=== PATIENT | male | born 1965 | race African-American/Black ===

== ENCOUNTER 2018-09-01 14:23 | Inpatient (IN) ==
[2018-09-01] MEDS ORDERED: hydrALAZINE HCl Inj 20 MG/ML Vial IV.PUSH ONE (14:45)
--- NOTE | 2018-09-01 15:01 | ED ---
HPI General Chief complaint: Hypertension Stated complaint: Hypertension Time Seen by Provider: 09/01/18 14:44 Source: patient and EMS Mode of arrival: EMS Limitations: no limitations History of Present Illness HPI narrative: Patient is a 52-year-old male presenting to the emergency department for evaluation of hypertension. Patient went to the [facility] this morning to get refills of his risperidone and venlafaxine, they took his blood pressure, it was elevated and they called 911 for him to be evaluated in the emergency department. Patient has no physical complaints at this time. He denies any chest pain, shortness of breath, dizziness, headache. He states he has been on different regimens in the past try to get his blood pressure controlled, he reports it was well controlled on Bystolic but that was changed due to cost. Patient reports compliance with his medications. Past medical history significant for type 2 diabetes, hyperlipidemia, hypertension, sleep apnea, seizures, posttraumatic stress, traumatic brain injury. Patient states his blood pressure has not been well controlled for the last few weeks. His states that he has been under a lot of stress. Patient denies any tobacco , alcohol or illicit drug use. Related Data Home Medications Medication Instructions Recorded Confirmed aspirin 81 mg PO DAILY 09/01/18 09/01/18 carvedilol [Coreg] 25 mg PO BID 09/01/18 09/01/18 glipizide 10 mg PO BID 09/01/18 09/01/18 hydrochlorothiazide 25 mg PO DAILY 09/01/18 09/01/18 losartan 100 mg PO DAILY 09/01/18 09/01/18 metformin 1,000 mg PO BID 09/01/18 09/01/18 omeprazole magnesium [Prilosec OTC] 20 mg PO DAILY 09/01/18 09/01/18 pravastatin 40 mg PO DAILY 09/01/18 09/01/18 prazosin 2 mg PO TID 09/01/18 09/01/18 risperidone [Risperdal] 1 mg PO DAILY 09/01/18 09/01/18 venlafaxine 150 mg PO DAILY 09/01/18 09/01/18 Allergies Allergy/AdvReac Type Severity Reaction Status Date / Time No Known Allergies Allergy Uncoded 06/12/13 11:59 Review of Systems ROS: all other systems reviewed are negative [facility] Medical History Medical History Diabetes (Acute) High cholesterol (Acute) Hypertension (Acute) Migraine (Acute) PTSD (post-traumatic stress disorder) (Acute) Seizure (Acute) Sleep apnea (Acute) TBI (traumatic brain injury) (Acute) Social History Social History Substance History: No History of Abuse Second Hand Smoke Exposure: No Smoking Status: Never smoker How Often Do You Have a Drink Containing Alcohol: 2 to 4 times a month Recent Travel in [facility] within the Last 8 Weeks: No Recent Out of Country Travel within the Last 8 Weeks: No Immunization History Tetanus Immunization: Unsure Exam Narrative Exam Narrative: GENERAL: Overweight, well-developed, alert -[place]ian male. Presenting in no acute distress. SKIN: Focused skin assessment warm/dry. HEAD: Atraumatic. Normocephalic. EYES: Pupils equal and round. No scleral icterus. No injection or drainage. ENT: No nasal bleeding or discharge. Mucous membranes pink and moist. NECK: Trachea midline. No JVD. CARDIOVASCULAR: Regular rate and rhythm. No murmur appreciated. RESPIRATORY: No accessory muscle use. Clear to auscultation. Breath sounds equal bilaterally. GASTROINTESTINAL: Abdomen soft, non-tender, nondistended. Hepatic and splenic margins not palpable. MUSCULOSKELETAL: No obvious deformities. No clubbing. No cyanosis. No edema. NEUROLOGICAL: Awake and alert. No obvious cranial nerve deficits. Motor grossly within normal limits. Normal speech. PSYCHIATRIC: Appropriate mood and affect; insight and judgment normal. Course Initial Documented Vital Signs Pulse Rate 89 09/01/18 14:40 Respiratory Rate 18 09/01/18 14:40 Blood Pressure 183/129 H 09/01/18 14:40 Pulse Oximetry 99 09/01/18 14:40 Last Documented Vital Signs Pulse Rate 87 09/01/18 15:23 Respiratory Rate 18 09/01/18 15:23 Blood Pressure 174/92 H 09/01/18 15:23 Pulse Oximetry 99 09/01/18 15:26 Critical Care Time Critical Care Time: Yes Total Critical Care Time: 30 Attestation: Aggregate critical care time was 30 minutes. Time to perform other separately billable procedures was not included in the critical care time. My time did not include minutes spent treating any other patients simultaneously or on activities that did not directly contribute to the patient's treatment. The services I provided to this patient were to treat and/or prevent clinically significant deterioration that could result in: , decompensation, deterioration I provided critical care services requiring my management, as noted below: Chart data review, documentation time, medication orders and management, vital sign assessments/reviewing monitor data, ordering and reviewing lab tests, ordering and interpreting/reviewing x-rays and diagnostic studies, care of the patient and discussion of the patient with the admitting physicians. Clinical Decision Support HEART Score Questions History: Slightly suspicious EKG: Non-specific repolarization disturbance Age: 45-64 years Risk Factors: 3 or more Risk Factors or Hx of Atherosclerotic Disease Initial Troponin: 1-3 x Normal Limit Heart Score HEART Score: 5 Medical Decision Making ЕЛЕНА Attestation ЕЛЕНА supervised visit: Yes Attestation: I, Dr. Carrero, have reviewed the advance practice practitioner's documentation and am in agreement, met with the patient face to face, made the diagnosis, and the medical decision making was done by me. *My assessment and Findings: Patient is a 52-year-old male with history of hypertension, hyperlipidemia and diabetes, was brought to the emergency room from the [place] for evaluation of hypertension. Patient was going for his routine checkup and for his PTSD medication refills, it was noted that his blood pressure was high. Patient's blood pressure there was about 170/120. Patient is completely a symptomatic at this time, denies any chest pain or shortness of breath or headache or dizziness. His EKG was compared to his prior EKG, there are changes concerning for possible ischemia. His troponin was 0.18. I did talk to Dr. Friedman who is on-call for cardiology, request patient be admitted to the medicine service, will hold heparin drip unless a second set of troponins is elevated. Plan to trend his troponins and control his blood pressure is this is most likely due to hypertensive urgency. MDM Narrative Medical decision making narrative: Patient is a well-appearing 52-year-old male presenting for evaluation of elevated blood pressure reading at the [facility]. Patient hypertensive on arrival, he is otherwise asymptomatic. Labs and imaging ordered and pending. IV access is established, patient was placed on temperature monitor and continuous pulse oximetry. Patient be given dose of IV hydralazine now. Will reassess. Labs resulted, K+3.1, troponin 0.18, heparin gtt ordered as well as 243mg of aspirin, pt took 81mg this morning. Discussed with Dr. Carrero who also evaluated patient. Cardiology was paged. CXR with no acute findings. Patient will be admitted to continue to trend cardiac enzymes. Discussed with Dr. Henderson, orders placed. Blood pressure trended down after IV hydralazine. Pt is resting comfortably, chest pain free currently. Medical Screen Exam Complete: Yes Emergency Medical Condition: Yes Differential Diagnosis Differential Diagnosis: Hypertensive urgency versus uncontrolled hypertension versus metabolic abnormality versus other Medical Records Medical records reviewed: Yes I reviewed the patient's medical records. Lab Data Result diagrams: 09/01/18 14:50 09/01/18 14:50 Lab Results 09/01/18 09/01/18 09/01/18 Range/Units 14:50 14:50 14:50 WBC 4.6 (4.0-11.0) th/mm3 RBC 4.90 (4.50-5.90) mil/mm3 Hgb 13.6 (13.0-17.0) gm/dL Hct 40.1 (39.0-51.0) % MCV 81.8 (80.0-100.0) fL MCH 27.8 (27.0-34.0) pg MCHC 33.9 (32.0-36.0) % RDW 13.7 (11.6-17.2) % Plt Count 221 (150-450) th/mm3 MPV 8.8 (7.0-11.0) fL Neut % (Auto) 37.3 (16.0-70.0) % Lymph % (Auto) 52.8 H (9.0-44.0) % Dixon % (Auto) 7.8 (0.0-8.0) % Eos % (Auto) 1.5 (0.0-4.0) % Baso % (Auto) 0.6 (0.0-2.0) % Neut # (Auto) 1.7 L (1.8-7.7) th/mm3 Lymph # (Auto) 2.4 (1.0-4.8) th/mm3 Dixon # (Auto) 0.4 (0.0-0.9) th/mm3 Eos # (Auto) 0.1 (0.0-0.4) th/mm3 Baso # (Auto) 0.0 (0.0-0.2) th/mm3 WBC Differential . Differential Comment Auto diff final PT 10.5 (9.8-11.6) sec INR 1.0 Ratio APTT 24.5 (23.4-31.7) sec Sodium 138 (136-145) meq/L Potassium 3.1 L (3.5-5.1) meq/L Chloride 102 (98-107) meq/L Carbon Dioxide 29.2 (21.0-32.0) meq/L Anion Gap 7 (5-15) meq/L BUN 10 (7-18) mg/dL Creatinine 1.02 (0.60-1.30) mg/dL Estimated GFR Greater than 89 (>89) mL/min Random Glucose 218 H (74-106) mg/dL Calcium 8.5 (8.5-10.1) mg/dL Magnesium 1.8 (1.5-2.5) mg/dL Total Bilirubin 0.2 (0.2-1.0) mg/dL AST 12 L (15-37) U/L ALT 26 (12-78) U/L Alkaline Phosphatase 87 (45-117) U/L Total Creatine Kinase 110 (39-308) U/L CK-MB (CK-2) Less than 1.0 (0.5-3.6) ng/mL Troponin I 0.18 H (0.02-0.05) ng/mL Total Protein 7.6 (6.4-8.2) g/dL Albumin 4.1 (3.4-5.0) g/dL Lipase 102 (73-393) U/L Urine Color (Yellw/Straw) Urine Clarity (Clear) Urine pH (5.0-8.5) Ur Specific [place] (1.002-1.035) Urine Protein (Neg-Trace) mg/dL Urine Glucose (UA) (Negative) mg/dL Urine Ketones (Negative) mg/dL Urine Occult Blood (Negative) Urine Nitrate (Negative) Urine Bilirubin (Negative) Urine Urobilinogen (Less than 2) mg/dL Ur Leukocyte Esterase (Negative) Urine RBC (0-3) /hpf Urine WBC (0-5) /hpf Ur Squamous Epith Cells (0-5) /hpf Urine Mucus (Occasional) /lpf Ur Microscopic Review 09/01/18 Range/Units 15:00 WBC (4.0-11.0) th/mm3 RBC (4.50-5.90) mil/mm3 Hgb (13.0-17.0) gm/dL Hct (39.0-51.0) % MCV (80.0-100.0) fL MCH (27.0-34.0) pg MCHC (32.0-36.0) % RDW (11.6-17.2) % Plt Count (150-450) th/mm3 MPV (7.0-11.0) fL Neut % (Auto) (16.0-70.0) % Lymph % (Auto) (9.0-44.0) % Dixon % (Auto) (0.0-8.0) % Eos % (Auto) (0.0-4.0) % Baso % (Auto) (0.0-2.0) % Neut # (Auto) (1.8-7.7) th/mm3 Lymph # (Auto) (1.0-4.8) th/mm3 Dixon # (Auto) (0.0-0.9) th/mm3 Eos # (Auto) (0.0-0.4) th/mm3 Baso # (Auto) (0.0-0.2) th/mm3 WBC Differential Differential Comment PT (9.8-11.6) sec INR Ratio APTT (23.4-31.7) sec Sodium (136-145) meq/L Potassium (3.5-5.1) meq/L Chloride (98-107) meq/L Carbon Dioxide (21.0-32.0) meq/L Anion Gap (5-15) meq/L BUN (7-18) mg/dL Creatinine (0.60-1.30) mg/dL Estimated GFR (>89) mL/min Random Glucose (74-106) mg/dL Calcium (8.5-10.1) mg/dL Magnesium (1.5-2.5) mg/dL Total Bilirubin (0.2-1.0) mg/dL AST (15-37) U/L ALT (12-78) U/L Alkaline Phosphatase (45-117) U/L Total Creatine Kinase (39-308) U/L CK-MB (CK-2) (0.5-3.6) ng/mL Troponin I (0.02-0.05) ng/mL Total Protein (6.4-8.2) g/dL Albumin (3.4-5.0) g/dL Lipase (73-393) U/L Urine Color Yellow (Yellw/Straw) Urine Clarity Clear (Clear) Urine pH 5.0 (5.0-8.5) Ur Specific [place] 1.023 (1.002-1.035) Urine Protein Negative (Neg-Trace) mg/dL Urine Glucose (UA) 500 or greater (Negative) mg/dL Urine Ketones Negative (Negative) mg/dL Urine Occult Blood Negative (Negative) Urine Nitrate Negative (Negative) Urine Bilirubin Negative (Negative) Urine Urobilinogen 2.0 H (Less than 2) mg/dL Ur Leukocyte Esterase Negative (Negative) Urine RBC Less than 1 (0-3) /hpf Urine WBC 1 (0-5) /hpf Ur Squamous Epith Cells 1 (0-5) /hpf Urine Mucus Few H (Occasional) /lpf Ur Microscopic Review Not Reportable Imaging Data Radiologist's impression: Chest X-Ray 09/01/18 14:44 CONCLUSION: 1. No acute abnormality or significant interval change. Discharge Plan Discharge Disposition Patient Disposition: ED Admit(ED Internal Use Only) Discharge Condition Condition: Stable Discharge Order Discharge Orders: ED Use Only Admit Order (Routine); Ordered 09/01/18 Ordered By: Rosio Thapa Discharge Details Diagnosis: Non-ST elevation (NSTEMI) myocardial infarction, Hypertension Physicians Team ED Provider: Ani Carrero ED Midlevel Provider: Rosio Thapa Primary Care Provider: Nate Aviles III Rxs /Orders / Referrals /Forms Prescriptions: No Action carvedilol [Coreg] 25 mg Tablet 25 mg PO BID RF: 0 glipizide 10 mg Tablet 10 mg PO BID RF: 0 venlafaxine 150 mg Capsule,Extended Release 24hr 150 mg PO DAILY RF: 0 pravastatin 10 mg Tablet 40 mg PO DAILY RF: 0 metformin 1,000 mg Tablet 1,000 mg PO BID RF: 0 aspirin 81 mg Tablet,Chewable 81 mg PO DAILY RF: 0 hydrochlorothiazide 25 mg Tablet 25 mg PO DAILY RF: 0 losartan 100 mg Tablet 100 mg PO DAILY RF: 0 risperidone [Risperdal] 1 mg Tablet 1 mg PO DAILY RF: 0 prazosin 2 mg Capsule 2 mg PO TID RF: 0 omeprazole magnesium [Prilosec OTC] 20 mg Tablet,Delayed Release (Dr/Ec) 20 mg PO DAILY RF: 0 Discharge Interventions Interventions: Vital Signs Last Done: 09/01/18 15:23 Status ED Status: Admitted Patient
[2018-09-01 15:20] LABS: Baso % (Auto) 0.6 % (0.0-2.0); Eos # (Auto) 0.1 th/mm3 (0.0-0.4); Eos % (Auto) 1.5 % (0.0-4.0); Hematocrit 40.1 % (39.0-51.0); Hemoglobin 13.6 gm/dL (13.0-17.0); Lymph # (Auto) 2.4 th/mm3 (1.0-4.8); Lymph % (Auto) 52.8 % (9.0-44.0); Mean Corpuscular HGB Conc 33.9 % (32.0-36.0); Mean Corpuscular Hemoglobin 27.8 pg (27.0-34.0); Mean Corpuscular Volume 81.8 fL (80.0-100.0); Mean Platelet Volume 8.8 fL (7.0-11.0); Mono # (Auto) 0.4 th/mm3 (0.0-0.9); Mono % (Auto) 7.8 % (0.0-8.0); Neut # (Auto) 1.7 th/mm3 (1.8-7.7); Neut % (Auto) 37.3 % (16.0-70.0); Platelet Count 221 th/mm3 (150-450); Red Cell Distribution Width 13.7 % (11.6-17.2); White Blood Count 4.6 th/mm3 (4.0-11.0)
[2018-09-01 15:21] LABS: Bilirubin,Urine Negative (Negative); Clarity,Urine Clear (Clear); Color,Urine Yellow (Yellw/Straw); Glucose,Urine (UA) 500 or Greater mg/dL (Negative); Leukocyte Esterase,Urine Negative (Negative); Mucus,Urine Few /lpf (Occasional); Nitrite,Urine Negative (Negative); Specific Gravity,Urine 1.023 (1.002-1.035); Squamous Epithelial Cell,Urine 1 /hpf (0-5)
[2018-09-01 15:26] LABS: Albumin 4.1 g/dL (3.4-5.0); Anion Gap 7 meq/L (5-15); Aspartate Aminotransferase 12 U/L (15-37); Blood Urea Nitrogen 10 mg/dL (7-18); Calcium 8.5 mg/dL (8.5-10.1); Carbon Dioxide 29.2 meq/L (21.0-32.0); Chloride 102 meq/L (98-107); Glomerular Filtration Rate Greater Than 89 mL/min (>89); Glucose,Random 218 mg/dL (74-106); Lipase 102 U/L (73-393); Magnesium 1.8 mg/dL (1.5-2.5); Potassium 3.1 meq/L (3.5-5.1); Sodium 138 meq/L (136-145)
[2018-09-01 15:28] LABS: Activated Partial Thrombo Time 24.5 sec (23.4-31.7); Prothrombin Time 10.5 sec (9.8-11.6)
[2018-09-01 15:31] LABS: Alanine Aminotransferase 26 U/L (12-78); Alkaline Phosphatase 87 U/L (45-117); Creatine Kinase 110 U/L (39-308); Total Protein 7.6 g/dL (6.4-8.2); Troponin I 0.18 ng/mL (0.02-0.05)
--- NOTE | 2018-09-01 15:32 | XR ---
EXAM DATE: 09/01/2018 3:17 PM EST AGE/SEX: 52 years / Male INDICATIONS: Blood pressure has been high, no chest pain at this time CLINICAL DATA: This is the patient's initial encounter. Patient reports that signs and symptoms have been present for 1 month and indicates a pain score of 0/10. MEDICAL/SURGICAL HISTORY: Hypertension. Diabetes. None. COMPARISON: [facility], CHEST SINGLE AP, 03/13/2016. . FINDINGS: Minimal linear parenchymal opacities in the left lower lung zone unchanged from prior exam. No new fo danielle pleural or parenchymal opacities. The cardiomediastinal contours are unremarkable. Osseous struc tures are intact. CONCLUSION: 1. No acute abnormality or significant interval change. Electronically signed by: Parag Johnston MD 09/01/2018 3:30 PM EST
[2018-09-01] MEDS ORDERED: Heparin Drip 25,000 UNIT/250 ML BAG IV.CONT PRN (15:38)
[2018-09-01] MEDS ORDERED: Heparin 10,000 UNITS/10 ML Vial (for IV use) IV.PUSH STA (15:38)
[2018-09-01] MEDS ORDERED: Dextrose 50% in Water 50 ML Vial IV.PUSH PRN ×2 (16:36→16:49)
--- NOTE | 2018-09-01 16:46 | P.HPIM ---
History of Present Illness Primary Care Physician: Nate Aviles III, MD Chief Complaint: elevated blood pressure History of Present Illness: patient is a 52 y/o male with history of hypertension, diabetes, dyslipidemia, PTSD who came from [place] office because of uncontrolled hypertension. he says that he went to [place] today to get this PTSD medications but when they checked his blood pressure he was sent to ER.he says that his blood pressure was under control till six months ago but after his Bystolic was switched to Coreg he noticed that his blood pressure started to go up. he denies any chest pain, sob , dizziness. Review of Systems All other systems reviewed negative except as stated in HPI PMFSH - History History Provided By: Patient - Medical History Medical History: Medical History (Last Reviewed 09/01/18 @ 16:41 by Leslie Rashid MD) Diabetes High cholesterol Hypertension Sleep apnea Migraine PTSD (post-traumatic stress disorder) Seizure TBI (traumatic brain injury) - Surgical History Surgical History: Surgical History (Last Updated 09/01/18 @ 16:42 by Lesile Rashid MD) H/O knee surgery - Family History Family History: Family History (Last Updated 09/01/18 @ 16:42 by Leslie Rashid MD) Other Family history of acute myocardial infarction - Tobacco History Second Hand Smoke Exposure: No Tobacco Use In Past 30 Days: No Smoking Status: Never smoker - Alcohol History How Often Do You Have a Drink Containing Alcohol: 2 to 4 times a month - Substance Use History Substance History: No History of Abuse - Travel History Recent Travel in the [place] Within the Last 8 Weeks: No Recent Travel Out of the Country Within the Last 8 Weeks: No - Immunization History Tetanus Immunization: Unsure Medications and Allergies Active Medications: Active Medications Aspirin (Aspirin Chew) 81 mg PO DAILY [facility] Dextrose (D50w Vial) 50 ml IV.PUSH UNSCH PRN PRN Reason: PER HYPOGLYCEMIA PROTOCOL Glucagon (Glucagon Inj) 1 mg OTHER PRN PRN PRN Reason: for Hypoglycemia Protocol Insulin Human Regular (Novolin R Correctional Sugar Inj) 0 units SQ ACHS [facility]; Protocol Non-Formulary Medication (Carvedilol [Coreg]) 25 mg PO BID [facility] Non-Formulary Medication (Omeprazole Magnesium [Prilosec Otc]) 20 mg PO DAILY [facility] Non-Formulary Medication (Venlafaxine [Venlafaxine]) 150 mg PO DAILY [facility] Non-Formulary Medication (Losartan [Losartan]) 100 mg PO DAILY [facility] Pravastatin Sodium (Pravachol) 40 mg PO DAILY [facility] Prazosin HCl (Minipress) 2 mg PO TID [facility] Risperidone (Risperdal) 1 mg PO DAILY [facility] Sodium Chloride (Ns Flush) 2 ml IV.FLUSH UNSCH PRN PRN Reason: FLUSH AFTER USING IV ACCESS Allergies Allergy/AdvReac Type Severity Reaction Status Date / Time No Known Allergies Allergy Uncoded 06/12/13 11:59 Home Medications Medication Instructions Recorded Confirmed Type aspirin 81 mg PO DAILY 09/01/18 09/01/18 History carvedilol [Coreg] 25 mg PO BID 09/01/18 09/01/18 History glipizide 10 mg PO BID 09/01/18 09/01/18 History hydrochlorothiazide 25 mg PO DAILY 09/01/18 09/01/18 History losartan 100 mg PO DAILY 09/01/18 09/01/18 History metformin 1,000 mg PO BID 09/01/18 09/01/18 History omeprazole magnesium [Prilosec OTC] 20 mg PO DAILY 09/01/18 09/01/18 History pravastatin 40 mg PO DAILY 09/01/18 09/01/18 History prazosin 2 mg PO TID 09/01/18 09/01/18 History risperidone [Risperdal] 1 mg PO DAILY 09/01/18 09/01/18 History venlafaxine 150 mg PO DAILY 09/01/18 09/01/18 History Exam Vital signs: Vital Signs 09/01/18 14:40 09/01/18 15:23 09/01/18 15:26 Pulse Rate 89 87 Respiratory Rate 18 18 Blood Pressure 183/129 H 174/92 H Pulse Oximetry 99 99 99 Intake & Output 08/31/18 09/01/18 09/01/18 18:59 06:59 18:59 Weight 138.346 kg - Constitutional no acute distress - Routine HEENT Exam Eye: Present: PERRL - Routine Neck Exam Present: supple - Routine Respiratory Exam Present: CTA bilaterally - Routine Cardiovascular Exam Present: RRR - Routine Abdominal Exam Present: soft - Routine Extremities Exam Comments: no pedal edema. - Routine Neurological Exam Present: alert, oriented X3 Results - Labs CBC & Chem 7: 09/01/18 14:50 09/01/18 14:50 Labs: Short CBC 09/01/18 Range/Units 14:50 WBC 4.6 (4.0-11.0) th/mm3 Hgb 13.6 (13.0-17.0) gm/dL Hct 40.1 (39.0-51.0) % Plt Count 221 (150-450) th/mm3 BMP 09/01/18 14:50 Sodium 138 Potassium 3.1 L Chloride 102 Carbon Dioxide 29.2 BUN 10 Creatinine 1.02 Calcium 8.5 Cardiac Enzymes 09/01/18 Range/Units 14:50 Total Creatine Kinase 110 (39-308) U/L CK-MB (CK-2) Less than 1.0 (0.5-3.6) ng/mL Troponin I 0.18 H (0.02-0.05) ng/mL Liver Function 09/01/18 Range/Units 14:50 Total Bilirubin 0.2 (0.2-1.0) mg/dL AST 12 L (15-37) U/L ALT 26 (12-78) U/L Alkaline Phosphatase 87 (45-117) U/L Albumin 4.1 (3.4-5.0) g/dL Urine 09/01/18 Range/Units 15:00 Urine Color Yellow (Yellw/Straw) Urine Clarity Clear (Clear) Urine pH 5.0 (5.0-8.5) Ur Specific [place] 1.023 (1.002-1.035) Urine Protein Negative (Neg-Trace) mg/dL Urine Glucose (UA) 500 or greater (Negative) mg/dL - Imaging Impressions Chest X-Ray 09/01/18 14:44 CONCLUSION: 1. No acute abnormality or significant interval change. Caprini VTE Risk Assessment Caprini VTE Risk Assessment: Moderate/High Risk (score >= 2) Caprini Risk Assessment Model: Point Value = 1 Point Value = 2 Point Value = 3 Point Value = 5 Age 41-60 Minor surgery BMI > 25 kg/m2 Swollen legs Varicose veins or History of unexplained or recurrent spontaneous Oral contraceptives or hormone replacement Sepsis (< 1 month) Serious lung disease, including pneumonia (< 1 month) Abnormal pulmonary function Acute myocardial infarction Congestive heart failure (< 1 month) History of inflammatory bowel disease Medical patient at bed rest Age 61-74 Arthroscopic surgery Major open surgery (> 45 min) Laparoscopic surgery (> 45 min) Malignancy Confined to bed (> 72 hours) Immobilizing plaster cast Central venous access Age >= 75 History of VTE Family history of VTE Factor V Leiden Prothrombin 12289H Lupus anticoagulant Anticardiolipin antibodies Elevated serum homocysteine Heparin-induced thrombocytopenia Other congenital or acquired thrombophilia Stroke (< 1 month) Elective arthroplasty Hip, pelvis, or leg fracture Acute spinal cord injury (< 1 month) Prophylaxis Regimen: Total Risk Factor Score Risk Level Prophylaxis Regimen 0-1 Low Early ambulation 2 Moderate Order ONE of the following: *Sequential Compression Device (SCD) *Heparin 5000 units SQ BID 3-4 Higher Order ONE of the following medications: *Heparin 5000 units SQ TID *Enoxaparin/Lovenox 40 mg SQ daily (WT < 150 kg, CrCl > 30 mL/min) *Enoxaparin/Lovenox 30 mg SQ daily (WT < 150 kg, CrCl > 10-29 mL/min) *Enoxaparin/Lovenox 30 mg SQ BID (WT < 150 kg, CrCl > 30 mL/min) AND/OR *Sequential Compression Device (SCD) 5 or more Highest Order ONE of the following medications: *Heparin 5000 units SQ TID (Preferred with Epidurals) *Enoxaparin/Lovenox 40 mg SQ daily (WT < 150 kg, CrCl > 30 mL/min) *Enoxaparin/Lovenox 30 mg SQ daily (WT < 150 kg, CrCl > 10-29 mL/min) *Enoxaparin/Lovenox 30 mg SQ BID (WT < 150 kg, CrCl > 30 mL/min) AND *Sequential Compression Device (SCD) Assessment and Plan - Plan A/P - hypertensive urgency will resume Coreg and Losartan and will add Amlodipine- start on Vasotec prn- will continue to monitor and adjust the regimen as needed. -elevated troponin- likely due to uncontrolled hypertension received aspirin- continue BB- will continue to trend the cardiac enzymes and consult Cardiology. will start on Heparin drip if the troponin trending up. -diabetes mellitus; start on accu-check with SSI -hypokalemia; will replace and monitor. -PTSD; resume home meds. -DVT prophylaxis with subq lovenox Discussed Condition With: ER physician and the patient. Discharge Planning: home; pending cardiac work-up.
[2018-09-01] MEDS ORDERED: Insulin NovoLIN Regular Correctional Sugar Inj SQ SCH (17:00)
[2018-09-01] MEDS ORDERED: amLODIPine 5 MG Tablet PO SCH (18:00)
[2018-09-01] MEDS: Insulin NovoLOG Aspart Correctional Sugar Inj SQ SCH ×2 (18:27→20:10)
--- NOTE | 2018-09-01 19:23 | ECG ---
Date Performed: 09/01/2018 Time Performed: 15:31:02 PTAGE: 52 years EKG: Sinus rhythm MODERATE INTRAVENTRICULAR CONDUCTION DELAY MODERATE T-WAVE ABNORMALITY ABNORMAL R WAVE PROGRESSION A BNORMAL ECG PREVIOUS TRACING : 03/13/2016 09.38 DOCTOR: Mani Dang Interpretating Date/Time 09/01/2018 19:21:29
[2018-09-01] MEDS ORDERED: Carvedilol 12.5 MG Tablet PO SCH (21:00)
--- NOTE | 2018-09-01 22:39 | MB ---
cc: Mt Friedman DO DATE: 09/01/2018 REASON FOR CONSULTATION: Elevated blood pressure, elevated troponin. HISTORY OF PRESENT ILLNESS: Washington Luu is a pleasant 52-year-old male who presented to [facility] from the [place] because of uncontrolled hypertension. He went to the [place] today to get his PTSD medications and they checked his blood pressure and since it was elevated, they sent him right to the emergency room. He denies any chest pain, shortness of breath or palpitations. His blood pressure has been well under control for the past 6 months, but his Bystolic was switched to Coreg and since then, his blood pressure has been elevated. In seeing him, he is currently hemodynamically stable, denying chest pain or shortness of breath. PAST MEDICAL HISTORY: 1. Diabetes. 2. Hyperlipidemia. 3. Hypertension. 4. Sleep apnea. 5. Migraines. 6. Posttraumatic stress disorder. 7. Seizures. 8. Traumatic brain injury. PAST SURGICAL HISTORY: Knee surgery. ALLERGIES: NO KNOWN DRUG ALLERGIES. MEDICATIONS: 1. Venlafaxine 150 mg daily. 2. Risperidone 1 mg daily. 3. Hydrochlorothiazide 25 mg daily. 4. Pravastatin 40 mg daily. 5. Metformin 1000 mg b.i.d. 6. Losartan 100 mg daily. 7. Glipizide 10 mg b.i.d. 8. Coreg 25 mg b.i.d. 9. Prazosin 2 mg t.i.d. 10. Omeprazole 20 mg daily. 11. Aspirin 81 mg daily. FAMILY HISTORY: Denies sudden cardiac within the family. SOCIAL HISTORY: Denies tobacco, alcohol or drug abuse. REVIEW OF SYSTEMS: Fourteen systems were reviewed including osteopathic. Pertinent positives and negatives above, otherwise negative. PHYSICAL EXAMINATION: VITAL SIGNS: Temperature 98.5, heart rate 87, blood pressure 174/92, respirations 18, pulse oximetry 99% on room air. GENERAL: The patient appears well, in no acute distress. Alert, awake and oriented x 3. HEENT: Extraocular muscles intact. Mucous membranes moist. NECK: Supple. No JVD at 45 degrees. No carotid bruits heard bilaterally. Carotid upstroke is brisk in nature. HEART: Regular rate and rhythm. Positive first and second heart sounds with no noted murmurs, gallops or rubs. LUNGS: Clear to auscultation bilaterally. No wheezes, rales or rhonchi. ABDOMEN: Soft, nontender, nondistended. No organomegaly noted. EXTREMITIES: Show no clubbing, cyanosis or edema. Femoral and distal pulses intact bilaterally. NEUROLOGIC: No focal deficits. SKIN: Warm, dry and intact. OSTEOPATHIC: No kyphoscoliosis, lordosis or paraspinal tender points. LABORATORY DATA: Hemoglobin 13.6, hematocrit 40.1, platelets 221. Potassium 3.1, BUN 10, creatinine 1.02, troponin 0.20. Electrocardiogram (09/01/2018 at 15:31): Sinus rhythm, moderate interventricular conduction delay, nonspecific ST-T wave changes, possibly due to LVH. IMPRESSION: 1. Accelerated hypertension. 2. Elevated troponin. 3. Diabetes. 4. Hyperlipidemia. 5. Sleep apnea. 6. Migraines. 7. Posttraumatic stress disorder. 8. Seizures. 9. Traumatic brain injury. RECOMMENDATIONS: 1. Mr. Luu presented due to accelerated hypertension [facility]. He has been having difficulty with his blood pressure since his Bystolic has been switched to carvedilol. In discussing with him, he would like to be switched back to Bystolic as it controlled his blood pressure, and he will use his insurance instead of the [facility] to get the medication. 2. Unsure of the dose that he was placed on, but he thinks it is either 5 or 10 mg. We will plan on placing him on 5 mg daily and this can be up to 10 mg to further control his blood pressure over the next few weeks, if still elevated. 3. Elevated troponin is most likely due to LVH with accelerated hypertension, but because he has significant risk factors and an abnormal EKG, although this may be LVH, we will plan on him undergoing a pharmacologic nuclear stress test in the morning. 4. We will check a 2-D echo to look at his overall left ventricular function, cardiac structure and possible valvopathies. 5. Further recommendations will be made based on the hospital course. Thank you for allowing me to see Washington Luu. If there are any questions, please do not hesitate to call. DO MARTIN Corey/devonte , 10:01 PM , 10:12 PM
[2018-09-02] MEDS: Insulin NovoLOG Aspart Correctional Sugar Inj SQ SCH ×5 (08:20→21:54)
[2018-09-02] MEDS: Pantoprazole Sodium 20 MG DR Tablet PO SCH (09:06)
[2018-09-02] MEDS: Enoxaparin Inj 40 MG/0.4 ML Syringe SQ SCH (09:08)
[2018-09-02] MEDS: Venlafaxine XR 75 MG Capsule PO SCH (09:08)
[2018-09-02] MEDS ORDERED: Regadenoson Inj 0.4 MG/5 ML Syringe IV.PUSH ONE (12:03)
--- NOTE | 2018-09-02 15:05 | P.PN ---
Subjective Interval history: Patient is in bed he is awake and alert. He appears in not acute distress. Says he does not have any chest pain. No palpitations. No shortness of breath. No nausea or vomiting. Denies lower extremity edema. Physical Exam Vital signs: Vital Signs 09/01/18 15:23 09/01/18 15:26 09/01/18 18:04 Temperature 98.5 F Pulse Rate 87 89 Respiratory Rate 18 19 Blood Pressure 174/92 H 187/115 H Pulse Oximetry 99 99 99 09/01/18 20:00 09/02/18 00:00 09/02/18 00:51 Temperature 98 F 97.9 F Pulse Rate 94 H 87 81 Respiratory Rate 15 15 Blood Pressure 162/84 H 159/85 H Pulse Oximetry 98 96 09/02/18 04:00 09/02/18 08:00 09/02/18 08:16 Temperature 97.5 F L 98.0 F Pulse Rate 85 96 H Respiratory Rate 18 20 Blood Pressure 158/92 H Pulse Oximetry 96 98 98 09/02/18 09:00 09/02/18 12:00 Temperature 97.4 F L Pulse Rate 77 86 Respiratory Rate 20 Blood Pressure 140/90 Pulse Oximetry 97 Intake & Output 09/01/18 09/02/18 09/02/18 18:59 06:59 18:59 Weight 138.346 kg 137.2 kg Other: # Voids 2 Date of Last Bowel Movement 08/31/18 08/31/18 Weight On Admission 137.2 kg Narrative: GENERAL: Pleasant 52 yo male, in nad. CARDIOVASCULAR: Regular rate and rhythm without murmurs, gallops, or rubs. RESPIRATORY: Breath sounds equal bilaterally. No accessory muscle use. GASTROINTESTINAL: Abdomen soft, non-tender, nondistended. MUSCULOSKELETAL: No cyanosis, or edema. BACK: Nontender without obvious deformity. No CVA tenderness. Results - Labs CBC & Chem 7: 09/01/18 14:50 09/01/18 14:50 Laboratory Results - last 24 hr 09/01/18 09/01/18 09/01/18 14:50 14:50 14:50 WBC 4.6 RBC 4.90 Hgb 13.6 Hct 40.1 MCV 81.8 MCH 27.8 MCHC 33.9 RDW 13.7 Plt Count 221 MPV 8.8 Neut % (Auto) 37.3 Lymph % (Auto) 52.8 H Barry % (Auto) 7.8 Eos % (Auto) 1.5 Baso % (Auto) 0.6 Neut # (Auto) 1.7 L Lymph # (Auto) 2.4 Barry # (Auto) 0.4 Eos # (Auto) 0.1 Baso # (Auto) 0.0 WBC Differential . Differential Comment Auto diff final PT 10.5 INR 1.0 APTT 24.5 Sodium 138 Potassium 3.1 L Chloride 102 Carbon Dioxide 29.2 Anion Gap 7 BUN 10 Creatinine 1.02 Estimated GFR Greater than 89 POC Glucose Random Glucose 218 H Calcium 8.5 Magnesium 1.8 Total Bilirubin 0.2 AST 12 L ALT 26 Alkaline Phosphatase 87 Total Creatine Kinase 110 CK-MB (CK-2) Less than 1.0 Troponin I 0.18 H Total Protein 7.6 Albumin 4.1 Lipase 102 Urine Color Urine Clarity Urine pH Ur Specific Maxwell Urine Protein Urine Glucose (UA) Urine Ketones Urine Occult Blood Urine Nitrate Urine Bilirubin Urine Urobilinogen Ur Leukocyte Esterase Urine RBC Urine WBC Ur Squamous Epith Cells Urine Mucus Ur Microscopic Review 09/01/18 09/01/18 09/01/18 15:00 18:06 19:39 WBC RBC Hgb Hct MCV MCH MCHC RDW Plt Count MPV Neut % (Auto) Lymph % (Auto) Barry % (Auto) Eos % (Auto) Baso % (Auto) Neut # (Auto) Lymph # (Auto) Barry # (Auto) Eos # (Auto) Baso # (Auto) WBC Differential Differential Comment PT INR APTT Sodium Potassium Chloride Carbon Dioxide Anion Gap BUN Creatinine Estimated GFR POC Glucose 178 H Random Glucose Calcium Magnesium Total Bilirubin AST ALT Alkaline Phosphatase Total Creatine Kinase CK-MB (CK-2) Troponin I 0.20 H Total Protein Albumin Lipase Urine Color Yellow Urine Clarity Clear Urine pH 5.0 Ur Specific Maxwell 1.023 Urine Protein Negative Urine Glucose (UA) 500 or greater Urine Ketones Negative Urine Occult Blood Negative Urine Nitrate Negative Urine Bilirubin Negative Urine Urobilinogen 2.0 H Ur Leukocyte Esterase Negative Urine RBC Less than 1 Urine WBC 1 Ur Squamous Epith Cells 1 Urine Mucus Few H Ur Microscopic Review Not Reportable 09/01/18 09/01/18 09/02/18 20:03 23:39 08:15 WBC RBC Hgb Hct MCV MCH MCHC RDW Plt Count MPV Neut % (Auto) Lymph % (Auto) Barry % (Auto) Eos % (Auto) Baso % (Auto) Neut # (Auto) Lymph # (Auto) Barry # (Auto) Eos # (Auto) Baso # (Auto) WBC Differential Differential Comment PT INR APTT Sodium Potassium Chloride Carbon Dioxide Anion Gap BUN Creatinine Estimated GFR POC Glucose 179 H 207 H Random Glucose Calcium Magnesium Total Bilirubin AST ALT Alkaline Phosphatase Total Creatine Kinase CK-MB (CK-2) Troponin I 0.18 H Total Protein Albumin Lipase Urine Color Urine Clarity Urine pH Ur Specific Maxwell Urine Protein Urine Glucose (UA) Urine Ketones Urine Occult Blood Urine Nitrate Urine Bilirubin Urine Urobilinogen Ur Leukocyte Esterase Urine RBC Urine WBC Ur Squamous Epith Cells Urine Mucus Ur Microscopic Review 09/02/18 11:48 WBC RBC Hgb Hct MCV MCH MCHC RDW Plt Count MPV Neut % (Auto) Lymph % (Auto) Barry % (Auto) Eos % (Auto) Baso % (Auto) Neut # (Auto) Lymph # (Auto) Barry # (Auto) Eos # (Auto) Baso # (Auto) WBC Differential Differential Comment PT INR APTT Sodium Potassium Chloride Carbon Dioxide Anion Gap BUN Creatinine Estimated GFR POC Glucose 232 H Random Glucose Calcium Magnesium Total Bilirubin AST ALT Alkaline Phosphatase Total Creatine Kinase CK-MB (CK-2) Troponin I Total Protein Albumin Lipase Urine Color Urine Clarity Urine pH Ur Specific Maxwell Urine Protein Urine Glucose (UA) Urine Ketones Urine Occult Blood Urine Nitrate Urine Bilirubin Urine Urobilinogen Ur Leukocyte Esterase Urine RBC Urine WBC Ur Squamous Epith Cells Urine Mucus Ur Microscopic Review - Imaging Impressions Chest X-Ray 09/01/18 14:44 CONCLUSION: 1. No acute abnormality or significant interval change. Assessment and Plan - Plan Hypertensive urgency will resume Coreg and Losartan and will add Amlodipine- start on Vasotec prn- will continue to monitor and adjust the regimen as needed. Elevated troponin- likely due to uncontrolled hypertension received aspirin- continue BB- will continue to trend the cardiac enzymes and consult Cardiology. will start on Heparin drip if the troponin trending up. Cardiology ordered a stress test had first part done today. Diabetes mellitus- start on accu-check with SSI. Hypokalemia- will replace and monitor. PTSD- resume home meds. DVT prophylaxis with subq lovenox Discussed Condition With: ER physician and the patient. Discharge Planning: home; pending cardiac work-up. Stress test pending we will have second part done tomorrow. Patient wants to go home after the stress test as he had recent event in his family his father and ceremony will be on Friday.
--- NOTE | 2018-09-02 15:12 | ECHRPT ---
Indication: CORONARY ATHEROSCLEROSIS CONCLUSIONS Normal left ventricular size. Moderate concentric left ventricular hypertrophy. Normal left ventricular systolic function with estimated EF of 55%. No segmental wall motion abnormalities. Mildly dilated proximal ascending aorta at 3.9cm Mild aortic valve regurgitation. There is trace tricuspid valve regurgitation. The estimated pulmonary arterial pressure is 15 mmHg. A left sided pleural effusion is present. BP: / HR: Rhythm: Sinus MEASUREMENTS (Male / Female) Normal Values Technical Quality:Fair 2D ECHO LV Diastolic Diameter PLAX 4.2 cm 4.2 - 5.9 / 3.9 - 5.3 cm LV Systolic Diameter PLAX 3.1 cm IVS Diastolic Thickness 1.8 cm 0.6 - 1.0 / 0.6 - 0.9 cm LVPW Diastolic Thickness 1.7 cm 0.6 - 1.0 / 0.6 - 0.9 cm LV Relative Wall Thickness 0.8 RV Internal Dim ED PLAX 2.7 cm LVOT Diameter 2.6 cm Aortic Root Diameter 3.4 cm LA Systolic Diameter LX 3.3 cm 3.0 - 4.0 / 2.7 - 3.8 cm Ascending Aorta Diameter 3.9 cm DOPPLER AV Peak Velocity 152.0 cm/s AV Peak Gradient 9.2 mmHg AV Mean Gradient 6.0 mmHg AV Velocity Time Integral 32.0 cm AI Peak Velocity 307.0 cm/s AI Peak Gradient 37.7 mmHg AI Pressure Half Time 551.5 ms LVOT Peak Velocity 85.5 cm/s LVOT Peak Gradient 2.9 mmHg LVOT Velocity Time Integral 15.9 cm AV Area Cont Eq vti 2.6 cm AV Area Cont Eq pk 3.0 cm Mitral E Point Velocity 67.3 cm/s Mitral A Point Velocity 87.0 cm/s Mitral E to A Ratio 0.8 LV E' Lateral Velocity 5.9 cm/s Mitral E to LV E' Lateral Ratio 11.5 LV E' Septal Velocity 4.0 cm/s Mitral E to LV E' Septal Ratio 16.8 TR Peak Velocity 110.0 cm/s TR Peak Gradient 4.8 mmHg Right Atrial Pressure 10.0 mmHg Pulmonary Artery Systolic Pressu 14.8 mmHg Right Ventricular Systolic Press 14.8 mmHg PV Peak Velocity 111.7 cm/s PV Peak Gradient 5.0 mmHg FINDINGS LEFT VENTRICLE Normal left ventricular size. Moderate concentric left ventricular hypertrophy. Normal LV systolic fx, EF 55%. No WMA. RIGHT VENTRICLE Normal right ventricular size and systolic function. LEFT ATRIUM The left atrial size is normal. RIGHT ATRIUM The right atrial size is normal. ATRIAL SEPTUM Normal atrial septal thickness without atrial level shunting by limited color doppler interrogation. AORTA Mildly dilated proximal ascending aorta at 3.9cm MITRAL VALVE Structurally normal mitral valve. No mitral valve stenosis or regurgitation. AORTIC VALVE Mild aortic valve regurgitation. TRICUSPID VALVE There is trace tricuspid valve regurgitation. The estimated pulmonary arterial pressure is 15 mmHg. PULMONARY VALVE No pulmonary valve regurgitation or stenosis. VESSELS The inferior vena cava is normal in size. PERICARDIUM A left sided pleural effusion is present. Mani Dang MD, FACC (Electronically Signed) Final Date:02 September 2018 15:11
--- NOTE | 2018-09-02 17:03 | ECG ---
Date Performed: 09/02/2018 Time Performed: 03:09:22 PTAGE: 52 years EKG: Sinus rhythm Poor R wave progression - probable normal variant Borderline ECG PREVIOUS TRACING : 09/01/2018 21.35 Since the previous tracing, no significant change noted DOCTOR: Mani Dang Interpretating Date/Time 09/02/2018 17:03:03
--- NOTE | 2018-09-02 17:15 | ECG ---
Date Performed: 09/01/2018 Time Performed: 21:35:25 PTAGE: 52 years EKG: Sinus rhythm MODERATE INTRAVENTRICULAR CONDUCTION DELAY NONSPECIFIC T-WAVE ABNORMALITY BORDERLINE ECG PREVIOUS TRACING : 09/01/2018 15.31 Since the previous tracing, no significant change noted DOCTOR: Mani Dang Interpretating Date/Time 09/02/2018 17:14:23
--- NOTE | 2018-09-03 00:43 | P.PNCA ---
Subjective Interval history: Resting comfortably No complaints Medications and Allergies Active Medications: Active Medications Aspirin (Aspirin Chew) 81 mg PO DAILY [facility] Last Admin: 09/02/18 09:07 Dose: 81 mg Dextrose (D50w Vial) 50 ml IV.PUSH UNSCH PRN PRN Reason: PER HYPOGLYCEMIA PROTOCOL Enalaprilat (Vasotec Inj) 1.25 mg IV.PUSH Q8H PRN PRN Reason: SBP > 180 or DBP > 100 Last Admin: 09/02/18 21:54 Dose: 1.25 mg Enoxaparin Sodium (Lovenox Inj) 40 mg SQ DAILY [facility] Last Admin: 09/02/18 09:08 Dose: 40 mg Glucagon (Glucagon Inj) 1 mg OTHER PRN PRN PRN Reason: for Hypoglycemia Protocol Insulin Aspart (Novolog Insulin Correctional Sugar Inj) 0 unit SQ ACHS [facility]; Protocol Last Admin: 09/02/18 21:54 Dose: 7 unit Losartan Potassium (Cozaar) 100 mg PO DAILY [facility] Last Admin: 09/02/18 09:06 Dose: 100 mg Nebivolol (Bystolic) 5 mg PO DAILY [facility] Last Admin: 09/02/18 09:08 Dose: 5 mg Pantoprazole Sodium (Protonix) 20 mg PO DAILY [facility] Last Admin: 09/02/18 09:06 Dose: 20 mg Pravastatin Sodium (Pravachol) 40 mg PO DAILY [facility] Last Admin: 09/02/18 09:07 Dose: 40 mg Prazosin HCl (Minipress) 2 mg PO TID [facility] Last Admin: 09/02/18 19:31 Dose: 2 mg Risperidone (Risperdal) 1 mg PO DAILY [facility] Last Admin: 09/02/18 09:07 Dose: 1 mg Sodium Chloride (Ns Flush) 2 ml IV.FLUSH UNSCH PRN PRN Reason: FLUSH AFTER USING IV ACCESS Last Admin: 09/02/18 09:10 Dose: 2 ml Venlafaxine HCl (Effexor Xr) 150 mg PO DAILY [facility] Last Admin: 09/02/18 09:08 Dose: 150 mg Allergies Allergy/AdvReac Type Severity Reaction Status Date / Time No Known Allergies Allergy Uncoded 06/12/13 11:59 Home Medications Medication Instructions Recorded Confirmed Type aspirin 81 mg PO DAILY 09/01/18 09/01/18 History carvedilol [Coreg] 25 mg PO BID 09/01/18 09/01/18 History glipizide 10 mg PO BID 09/01/18 09/01/18 History hydrochlorothiazide 25 mg PO DAILY 09/01/18 09/01/18 History losartan 100 mg PO DAILY 09/01/18 09/01/18 History metformin 1,000 mg PO BID 09/01/18 09/01/18 History omeprazole magnesium [Prilosec OTC] 20 mg PO DAILY 09/01/18 09/01/18 History pravastatin 40 mg PO DAILY 09/01/18 09/01/18 History prazosin 2 mg PO TID 09/01/18 09/01/18 History risperidone [Risperdal] 1 mg PO DAILY 09/01/18 09/01/18 History venlafaxine 150 mg PO DAILY 09/01/18 09/01/18 History Physical Exam Vital signs: Vital Signs 09/02/18 00:51 09/02/18 04:00 09/02/18 08:00 Temperature 97.5 F L 98.0 F Pulse Rate 81 85 96 H Respiratory Rate 18 20 Blood Pressure 158/92 H Pulse Oximetry 96 98 09/02/18 08:16 09/02/18 09:00 09/02/18 12:00 Temperature 97.4 F L Pulse Rate 77 86 Respiratory Rate 20 Blood Pressure 140/90 Pulse Oximetry 98 97 09/02/18 16:00 09/02/18 17:29 09/02/18 20:00 Temperature 97.5 F L 97.4 F L Pulse Rate 87 85 Respiratory Rate 20 20 Blood Pressure 146/84 H 160/110 H Pulse Oximetry 96 97 97 09/03/18 00:00 Temperature 97.4 F L Pulse Rate 86 Respiratory Rate 16 Blood Pressure 159/90 H Pulse Oximetry 97 Intake & Output 09/02/18 09/02/18 09/03/18 06:59 18:59 06:59 Intake Total 480 / 480 Balance 480 / 480 Weight 137.2 kg 136.3 kg Intake: Oral 480 / 480 Other 0 / 0 Other: # Voids 2 3 Date of Last Bowel Movement 08/31/18 08/31/18 09/02/18 # Bowel Movements 1 Weight On Admission 137.2 kg Narrative: GENERAL: Pleasant 52 yo male, in nad. CARDIOVASCULAR: Regular rate and rhythm without murmurs, gallops, or rubs. RESPIRATORY: Breath sounds equal bilaterally. No accessory muscle use. GASTROINTESTINAL: Abdomen soft, non-tender, nondistended. MUSCULOSKELETAL: No cyanosis, or edema. BACK: Nontender without obvious deformity. No CVA tenderness. Results 09/01/18 14:50 09/01/18 14:50 Cardiac Enzymes 09/01/18 09/01/18 09/01/18 Range/Units 14:50 19:39 23:39 AST 12 L (15-37) U/L CK-MB (CK-2) Less than 1.0 (0.5-3.6) ng/mL Troponin I 0.18 H 0.20 H 0.18 H (0.02-0.05) ng/mL Coagulation 09/01/18 Range/Units 14:50 PT 10.5 (9.8-11.6) sec APTT 24.5 (23.4-31.7) sec CBC 09/01/18 Range/Units 14:50 WBC 4.6 (4.0-11.0) th/mm3 RBC 4.90 (4.50-5.90) mil/mm3 Hgb 13.6 (13.0-17.0) gm/dL Hct 40.1 (39.0-51.0) % Plt Count 221 (150-450) th/mm3 Neut # (Auto) 1.7 L (1.8-7.7) th/mm3 Lymph # (Auto) 2.4 (1.0-4.8) th/mm3 [place] # (Auto) 0.4 (0.0-0.9) th/mm3 Eos # (Auto) 0.1 (0.0-0.4) th/mm3 Baso # (Auto) 0.0 (0.0-0.2) th/mm3 Comprehensive Metabolic Panel 09/01/18 Range/Units 14:50 Sodium 138 (136-145) meq/L Potassium 3.1 L (3.5-5.1) meq/L Chloride 102 (98-107) meq/L Carbon Dioxide 29.2 (21.0-32.0) meq/L BUN 10 (7-18) mg/dL Creatinine 1.02 (0.60-1.30) mg/dL Calcium 8.5 (8.5-10.1) mg/dL AST 12 L (15-37) U/L ALT 26 (12-78) U/L Alkaline Phosphatase 87 (45-117) U/L Total Protein 7.6 (6.4-8.2) g/dL Albumin 4.1 (3.4-5.0) g/dL Intake and Output 09/02/18 09/02/18 09/03/18 14:59 22:59 06:59 Intake Total 480 / 480 Balance 480 / 480 Intake: Oral 480 / 480 Other 0 / 0 Other: # Voids 3 Date of Last Bowel Movement 08/31/18 09/02/18 # Bowel Movements 1 Weight 136.3 kg Patient Weight 09/03/18 06:59 Weight 136.3 kg - Imaging and Cardiology Imaging: Impressions Chest X-Ray 09/01/18 14:44 CONCLUSION: 1. No acute abnormality or significant interval change. Assessment and Plan - Assessment (1) Elevated troponin Code(s): R74.8 - Abnormal levels of other serum enzymes Status: Acute (2) Hypertensive urgency Code(s): I16.0 - Hypertensive urgency Status: Acute (3) Abnormal EKG Code(s): R94.31 - Abnormal electrocardiogram [ECG] [EKG] Status: Acute - Plan 1) HTN urgency/accelerated HTN Blood pressure mildly better Bystolic 5mg daily for 2 weeks, if BP still elevated then increase to 10mg Blood pressure will not be perfect before discharge due to need for titration over a period of time 2) Elevated troponin Most likely LVH with HTN urgency Plan for stress test part 2 tomorrow 3) EF 55-60% by echo
[2018-09-03 05:52] VITALS: TEMP 98.3
[2018-09-03 08:42] VITALS: BP 156/100; RESP 18; O2SAT 96
[2018-09-03] MEDS: Venlafaxine XR 75 MG Capsule PO SCH (09:48)
[2018-09-03] MEDS: Enoxaparin Inj 40 MG/0.4 ML Syringe SQ SCH (09:48)
[2018-09-03] MEDS: Insulin NovoLOG Aspart Correctional Sugar Inj SQ SCH (09:48)
[2018-09-03] MEDS: Pantoprazole Sodium 20 MG DR Tablet PO SCH (09:48)
--- NOTE | 2018-09-03 09:57 | NM ---
EXAM DATE: 09/03/2018 9:26 AM EST AGE/SEX: 52 years / Male INDICATIONS:Coronary atherosclerosis. . Chest pressure for one day. CLINICAL DATA: This is the patient's initial encounter. Patient reports that signs and symptoms have been present for 1 day and indicates a pain score of 0/10. MEDICAL/SURGICAL HISTORY: Diabetes mellitus type II. Hypertension. Total knee replacement, lef t. COMPARISON: [facility], MYOCARDIAL PERF PHARM SPECT, 03/14/2016. . No external comparison. DOSE: 30.2 mCi Tc 99m Myoview at rest 30.2 mCi [id number] at stress 0.4 mg Lexiscan STRESS SYMPTOMS: Dyspnea. EJECTION FRACTION: 49 % TECHNIQUE: The patient underwent pharmacologic stress with infusion of prescribed dose. Continuous ECG tracing was monitored during stress. Gated SPECT imaging was performed after stress and conventi onal SPECT imaging was performed at rest. The examination was performed on a SPECT/CT scanner, both attenuation and non-corrected datasets were reviewed. Two day protocol was used. FINDINGS: Distribution: The maximum perfused segment at stress is in the septal wall. Perfusion Study: There is minimal decreased activity seen on the stress images at the anterior wall on the mid ventricle in the order of 10-20%. This is borderline for ischemia. Gated Study: There are intact wall motion and wall thickening without hypokinetic or dyskinetic segm ents. The ejection fraction is calculated at 49%. RISK CATEGORY: Low (<1% Annual Motality Rate) CONCLUSION: 1. Minimal decreased activity on stress images in the mid anterior wall likely within normal variabi lity versus borderline ischemia. 2. The wall motion is normal. Ejection fraction is 49%. Electronically signed by: Ankit Avalos MD 09/03/2018 9:56 AM EST
--- NOTE | 2018-09-03 12:20 | P.PNIM ---
Subjective Interval history: Chief Complaint: elevated blood pressure History of Present Illness: patient is a 52 y/o male with history of hypertension, diabetes, dyslipidemia, PTSD who came from [place] office because of uncontrolled hypertension. [facility] that [facility] but when they checked his blood pressure he was sent to ER.he says that his blood pressure was under control till six months ago but after his Bystolic was switched to Coreg he noticed that his blood pressure started to go up. he denies any chest pain, sob , dizziness. 12- Patient is in bed he is awake and alert. He appears in not acute distress. Says he does not have any chest pain. No palpitations. No shortness of breath. No nausea or vomiting. Denies lower extremity edema. 09-03 HAD STRESS TEST HAS BEEN CLEARED BY CARDIOLOGY DW RN AND PATIENT AND FAMILY AND CARDIOLOGY DC TO HOME [facility]LLOW UP [facility] AND [facility]ARDIOLOGY RX WRITTEN DENIES ANY CHEST PAIN WANTS TO GO HOME TODAY Physical Exam Vital signs: Vital Signs 09/02/18 16:00 09/02/18 17:29 09/02/18 20:00 Temperature 97.5 F L 97.4 F L Pulse Rate 87 85 Respiratory Rate 20 20 Blood Pressure 146/84 H 160/110 H Pulse Oximetry 96 97 97 09/03/18 00:00 09/03/18 04:00 09/03/18 07:58 Temperature 97.4 F L 98.3 F Pulse Rate 85 83 Respiratory Rate 16 17 Blood Pressure 159/90 H 174/95 H Pulse Oximetry 97 98 97 09/03/18 08:00 Temperature 98.3 F Pulse Rate 78 Respiratory Rate 18 Blood Pressure 156/100 H Pulse Oximetry 96 Intake & Output 09/02/18 09/03/18 09/03/18 18:59 06:59 18:59 Intake Total 480 / 480 480 / 480 Balance 480 / 480 480 / 480 Weight 136.3 kg 136.4 kg Intake: Oral 480 / 480 480 / 480 Other 0 / 0 Other: # Voids 3 3 Date of Last Bowel Movement 08/31/18 09/02/18 # Bowel Movements 1 Narrative: GENERAL: Awake alert and oriented X3 talkative and cooperative SKIN: Warm and dry. HEAD: Atraumatic. Normocephalic. EYES: Pupils equal and round. No scleral icterus. No injection or drainage. ENT: No nasal bleeding or discharge. Mucous membranes pink and moist. NECK: Trachea midline. No JVD. CARDIOVASCULAR: Regular rate and rhythm. S1-S2 no S3 or S4 RESPIRATORY: No accessory muscle use. Clear to auscultation. Breath sounds equal bilaterally. GASTROINTESTINAL: Abdomen soft, non-tender, nondistended. Hepatic and splenic margins not palpable. MUSCULOSKELETAL: Extremities without clubbing, cyanosis, or edema. No obvious deformities. NEUROLOGICAL: Awake and alert. No obvious cranial nerve deficits. Motor grossly within normal limits. Five out of 5 muscle strength in the arms and legs. Normal speech. PSYCHIATRIC: Appropriate mood and affect; insight and judgment normal. Results - Labs CBC & Chem 7: 09/01/18 14:50 09/01/18 14:50 Laboratory Results - last 24 hr 09/02/18 09/02/18 09/02/18 11:48 18:07 20:32 POC Glucose 232 H 292 H 313 H 09/03/18 07:50 POC Glucose 197 H - Imaging Impressions Myocardial Perfusion Scan Nuc Med 09/02/18 00:00 CONCLUSION: 1. Minimal decreased activity on stress images in the mid anterior wall likely within normal variability versus borderline ischemia. 2. The wall motion is normal. Ejection fraction is 49%. - Procedures None other than stress test Assessment and Plan - Plan Hypertensive urgency will resume Coreg and Losartan and will add Amlodipine- start on Vasotec prn- will continue to monitor and adjust the regimen as needed. Elevated troponin- likely due to uncontrolled hypertension received aspirin- continue BB- will continue to trend the cardiac enzymes and consult Cardiology. will start on Heparin drip if the troponin trending up. Cardiology ordered a stress test had first part done today. CLEARED BY CARDIOLOGY FOR DC Diabetes mellitus- start on accu-check with SSI. Hypokalemia- will replace and monitor. PTSD- resume home meds. DVT prophylaxis with subq lovenox NEEDS FOLLOW UP WITH [facility]OLOGY AND [facility] AND [facility] Code Status: FULL CODE Discussed Condition With: RN AND PT AND CARDIOLOGY AND FAMILY Discharge Planning: DC TO HOME TODAY
--- NOTE | 2018-09-03 12:33 | P.DS ---
Date of admission: 09/01/18 16:39 Primary care physician: Nate Aviles III, MD Attending physician on discharge: Zurdo Cody Anticipated date of discharge: 09/03/18 Brief History from admission: patient is a 52 y/o male with history of hypertension, diabetes, dyslipidemia, PTSD who came from [facility] office because of uncontrolled hypertension. he says that he went to [facility] today to get this [facility] medications but when they checked his blood pressure he was sent to ER.he says that his blood pressure was under control till six months ago but after his Bystolic was switched to Coreg he noticed that his blood pressure started to go up. he denies any chest pain, sob , dizziness. Patient update on day of discharge: Chief Complaint: elevated blood pressure History of Present Illness: patient is a 52 y/o male with history of hypertension, diabetes, dyslipidemia, PTSD who came from [facility] office because of uncontrolled hypertension. he says that he went to [facility] today to get this PTSD medications but when they checked his blood pressure he was sent to ER.he says that his blood pressure was under control till six months ago but after his Bystolic was switched to Coreg he noticed that his blood pressure started to go up. he denies any chest pain, sob , dizziness. 12-5 Patient is in bed he is awake and alert. He appears in not acute distress. Says he does not have any chest pain. No palpitations. No shortness of breath. No nausea or vomiting. Denies lower extremity edema. 12-6 HAD STRESS TEST HAS BEEN CLEARED BY CARDIOLOGY DW RN AND PATIENT AND FAMILY AND CARDIOLOGY DC TO HOME [facility] UP [facility] AND [facility]ARDIOLOGY RX WRITTEN DENIES ANY CHEST PAIN WANTS TO GO HOME TODAY DS: Diagnosis - Discharge Diagnosis (1) Abnormal EKG Status: Acute (2) Elevated troponin Status: Acute (3) Hypertension Status: Chronic (4) Hypertensive urgency Status: Acute (5) Non-ST elevation (NSTEMI) myocardial infarction Status: Acute DS: Medications - Discharge Medications Prescriptions: aspirin 81 mg PO DAILY #30 tab hydrochlorothiazide 25 mg PO DAILY #30 tab losartan 100 mg PO DAILY #30 tab nebivolol [Bystolic] 5 mg PO DAILY #30 tab potassium chloride 20 meq PO DAILY #30 tab pravastatin 40 mg PO DAILY #30 tab prazosin 2 mg PO TID #90 cap DS: Summary Hospital Course: Chief Complaint: elevated blood pressure History of Present Illness: patient is a 52 y/o male with history of hypertension, diabetes, dyslipidemia, PTSD who came [place] [facility] office because of uncontrolled hypertension. he says that [facility] but when they checked his blood pressure he was sent to ER.he says that his blood pressure was under control till six months ago but after his Bystolic was switched to Coreg he noticed that his blood pressure started to go up. he denies any chest pain, sob , dizziness. 12-5 Patient is in bed he is awake and alert. He appears in not acute distress. Says he does not have any chest pain. No palpitations. No shortness of breath. No nausea or vomiting. Denies lower extremity edema. 12-6 HAD STRESS TEST HAS BEEN CLEARED BY CARDIOLOGY DW RN AND PATIENT AND FAMILY AND CARDIOLOGY DC [facility]LLOW [facility] AND CARDIOLOGY RX WRITTEN DENIES ANY CHEST PAIN WANTS TO GO HOME TODAY - Time Spent with Patient Total time spent providing and/or coordinating discharge services: Greater than 30 minutes - Quality: VTE Deep Vein Thrombosis/Pulmonary Embolism Present on Admission: No Exam Vital signs: Vital Signs 09/02/18 16:00 09/02/18 17:29 09/02/18 20:00 Temperature 97.5 F L 97.4 F L Pulse Rate 87 85 Respiratory Rate 20 20 Blood Pressure 146/84 H 160/110 H Pulse Oximetry 96 97 97 09/03/18 00:00 09/03/18 04:00 09/03/18 07:58 Temperature 97.4 F L 98.3 F Pulse Rate 85 83 Respiratory Rate 16 17 Blood Pressure 159/90 H 174/95 H Pulse Oximetry 97 98 97 09/03/18 08:00 Temperature 98.3 F Pulse Rate 78 Respiratory Rate 18 Blood Pressure 156/100 H Pulse Oximetry 96 Intake & Output 09/02/18 09/03/18 09/03/18 18:59 06:59 18:59 Intake Total 480 / 480 480 / 480 Balance 480 / 480 480 / 480 Weight 136.3 kg 136.4 kg Intake: Oral 480 / 480 480 / 480 Other 0 / 0 Other: # Voids 3 3 Date of Last Bowel Movement 08/31/18 09/02/18 # Bowel Movements 1 Narrative: GENERAL: Awake alert and oriented X3 talkative and cooperative SKIN: Warm and dry. HEAD: Atraumatic. Normocephalic. EYES: Pupils equal and round. No scleral icterus. No injection or drainage. ENT: No nasal bleeding or discharge. Mucous membranes pink and moist. NECK: Trachea midline. No JVD. CARDIOVASCULAR: Regular rate and rhythm. S1-S2 no S3 or S4 RESPIRATORY: No accessory muscle use. Clear to auscultation. Breath sounds equal bilaterally. GASTROINTESTINAL: Abdomen soft, non-tender, nondistended. Hepatic and splenic margins not palpable. MUSCULOSKELETAL: Extremities without clubbing, cyanosis, or edema. No obvious deformities. NEUROLOGICAL: Awake and alert. No obvious cranial nerve deficits. Motor grossly within normal limits. Five out of 5 muscle strength in the arms and legs. Normal speech. PSYCHIATRIC: Appropriate mood and affect; insight and judgment normal. Results Procedures completed during hospitalization: None other than stress test Completed studies during hospitalization: Laboratory Results WBC 4.6 th/mm3 (4.0-11.0) 09/01/18 14:50 RBC 4.90 mil/mm3 (4.50-5.90) 09/01/18 14:50 Hgb 13.6 gm/dL (13.0-17.0) 09/01/18 14:50 Hct 40.1 % (39.0-51.0) 09/01/18 14:50 MCV 81.8 fL (80.0-100.0) 09/01/18 14:50 MCH 27.8 pg (27.0-34.0) 09/01/18 14:50 MCHC 33.9 % (32.0-36.0) 09/01/18 14:50 RDW 13.7 % (11.6-17.2) 09/01/18 14:50 Plt Count 221 th/mm3 (150-450) 09/01/18 14:50 MPV 8.8 fL (7.0-11.0) 09/01/18 14:50 Neut % (Auto) 37.3 % (16.0-70.0) 09/01/18 14:50 Lymph % (Auto) 52.8 % (9.0-44.0) H 09/01/18 14:50 Desha % (Auto) 7.8 % (0.0-8.0) 09/01/18 14:50 Eos % (Auto) 1.5 % (0.0-4.0) 09/01/18 14:50 Baso % (Auto) 0.6 % (0.0-2.0) 09/01/18 14:50 Neut # (Auto) 1.7 th/mm3 (1.8-7.7) L 09/01/18 14:50 Lymph # (Auto) 2.4 th/mm3 (1.0-4.8) 09/01/18 14:50 Desha # (Auto) 0.4 th/mm3 (0.0-0.9) 09/01/18 14:50 Eos # (Auto) 0.1 th/mm3 (0.0-0.4) 09/01/18 14:50 Baso # (Auto) 0.0 th/mm3 (0.0-0.2) 09/01/18 14:50 WBC Differential . 09/01/18 14:50 Differential Comment Auto diff final 09/01/18 14:50 PT 10.5 sec (9.8-11.6) 09/01/18 14:50 INR 1.0 Ratio 09/01/18 14:50 APTT 24.5 sec (23.4-31.7) 09/01/18 14:50 Sodium 138 meq/L (136-145) 09/01/18 14:50 Potassium 3.1 meq/L (3.5-5.1) L 09/01/18 14:50 Chloride 102 meq/L (98-107) 09/01/18 14:50 Carbon Dioxide 29.2 meq/L (21.0-32.0) 09/01/18 14:50 Anion Gap 7 meq/L (5-15) 09/01/18 14:50 BUN 10 mg/dL (7-18) 09/01/18 14:50 Creatinine 1.02 mg/dL (0.60-1.30) 09/01/18 14:50 Estimated GFR Greater than 89 mL/min (>89) 09/01/18 14:50 POC Glucose 197 mg/dl (68-110) H 09/03/18 07:50 Random Glucose 218 mg/dL (74-106) H 09/01/18 14:50 Calcium 8.5 mg/dL (8.5-10.1) 09/01/18 14:50 Magnesium 1.8 mg/dL (1.5-2.5) 09/01/18 14:50 Total Bilirubin 0.2 mg/dL (0.2-1.0) 09/01/18 14:50 AST 12 U/L (15-37) L 09/01/18 14:50 ALT 26 U/L (12-78) 09/01/18 14:50 Alkaline Phosphatase 87 U/L (45-117) 09/01/18 14:50 Total Creatine Kinase 110 U/L (39-308) 09/01/18 14:50 CK-MB (CK-2) Less than 1.0 ng/mL (0.5-3.6) 09/01/18 14:50 Troponin I 0.18 ng/mL (0.02-0.05) H 09/01/18 23:39 Total Protein 7.6 g/dL (6.4-8.2) 09/01/18 14:50 Albumin 4.1 g/dL (3.4-5.0) 09/01/18 14:50 Lipase 102 U/L (73-393) 09/01/18 14:50 Urine Color Yellow (Yellw/Straw) 09/01/18 15:00 Urine Clarity Clear (Clear) 09/01/18 15:00 Urine pH 5.0 (5.0-8.5) 09/01/18 15:00 Ur Specific [place] 1.023 (1.002-1.035) 09/01/18 15:00 Urine Protein Negative mg/dL (Neg-Trace) 09/01/18 15:00 Urine Glucose (UA) 500 or greater mg/dL (Negative) 09/01/18 15:00 Urine Ketones Negative mg/dL (Negative) 09/01/18 15:00 Urine Occult Blood Negative (Negative) 09/01/18 15:00 Urine Nitrate Negative (Negative) 09/01/18 15:00 Urine Bilirubin Negative (Negative) 09/01/18 15:00 Urine Urobilinogen 2.0 mg/dL (Less than 2) H 09/01/18 15:00 Ur Leukocyte Esterase Negative (Negative) 09/01/18 15:00 Urine RBC Less than 1 /hpf (0-3) 09/01/18 15:00 Urine WBC 1 /hpf (0-5) 09/01/18 15:00 Ur Squamous Epith Cells 1 /hpf (0-5) 09/01/18 15:00 Urine Mucus Few /lpf (Occasional) H 09/01/18 15:00 Ur Microscopic Review Not Reportable 09/01/18 15:00 Impressions Chest X-Ray 09/01/18 14:44 CONCLUSION: 1. No acute abnormality or significant interval change. Myocardial Perfusion Scan Nuc Med 09/02/18 00:00 CONCLUSION: 1. Minimal decreased activity on stress images in the mid anterior wall likely within normal variability versus borderline ischemia. 2. The wall motion is normal. Ejection fraction is 49%. Labs on day of discharge: Labs from last 24 hours 09/03/18 09/02/18 09/02/18 07:50 20:32 18:07 POC Glucose 197 H 313 H 292 H 09/02/18 11:48 POC Glucose 232 H - Impressions ITS Impressions Chest X-Ray 09/01/18 14:44 CONCLUSION: 1. No acute abnormality or significant interval change. Myocardial Perfusion Scan Nuc Med 09/02/18 00:00 CONCLUSION: 1. Minimal decreased activity on stress images in the mid anterior wall likely within normal variability versus borderline ischemia. 2. The wall motion is normal. Ejection fraction is 49%. Discharge Plan - Discharge Disposition Patient Disposition: 01 Discharge Home - Discharge Condition Condition: Stable - Discharge Order Discharge Orders: Discharge Order (Routine); Ordered 09/03/18 Ordered By: Zurdo Cody - Discharge Details Anticipated Discharge Date: 09/03/18 Discharge Comment: DC TO HOME TODAY - Physicians Team Primary Care Provider: Nate Aviles III Attending Provider: Zurdo Cody Other Providers: Mt Friedman DO
[2018-09-03 14:59] VITALS: PULSE 76
--- NOTE | 2018-09-03 23:08 | P.PNCA ---
Subjective Interval history: No events overnight No chest pain Medications and Allergies Allergies Allergy/AdvReac Type Severity Reaction Status Date / Time No Known Allergies Allergy Uncoded 06/12/13 11:59 Home Medications Medication Instructions Recorded Confirmed Type glipizide 10 mg PO BID 09/01/18 09/01/18 History metformin 1,000 mg PO BID 09/01/18 09/01/18 History omeprazole magnesium [Prilosec OTC] 20 mg PO DAILY 09/01/18 09/01/18 History risperidone [Risperdal] 1 mg PO DAILY 09/01/18 09/01/18 History venlafaxine 150 mg PO DAILY 09/01/18 09/01/18 History Physical Exam Vital signs: Vital Signs 09/03/18 00:00 09/03/18 04:00 09/03/18 07:58 Temperature 97.4 F L 98.3 F Pulse Rate 85 83 Respiratory Rate 16 17 Blood Pressure 159/90 H 174/95 H Pulse Oximetry 97 98 97 09/03/18 08:00 09/03/18 12:00 Temperature 98.3 F Pulse Rate 78 76 Respiratory Rate 18 Blood Pressure 156/100 H Pulse Oximetry 96 Intake & Output 09/03/18 09/03/18 09/04/18 06:59 18:59 06:59 Intake Total 480 / 480 Balance 480 / 480 Weight 136.4 kg Intake: Oral 480 / 480 Other: # Voids 3 Date of Last Bowel Movement 09/02/18 Narrative: GENERAL: Awake alert and oriented X3 talkative and cooperative SKIN: Warm and dry. HEAD: Atraumatic. Normocephalic. EYES: Pupils equal and round. No scleral icterus. No injection or drainage. ENT: No nasal bleeding or discharge. Mucous membranes pink and moist. NECK: Trachea midline. No JVD. CARDIOVASCULAR: Regular rate and rhythm. S1-S2 no S3 or S4 RESPIRATORY: No accessory muscle use. Clear to auscultation. Breath sounds equal bilaterally. GASTROINTESTINAL: Abdomen soft, non-tender, nondistended. Hepatic and splenic margins not palpable. MUSCULOSKELETAL: Extremities without clubbing, cyanosis, or edema. No obvious deformities. NEUROLOGICAL: Awake and alert. No obvious cranial nerve deficits. Motor grossly within normal limits. Five out of 5 muscle strength in the arms and legs. Normal speech. PSYCHIATRIC: Appropriate mood and affect; insight and judgment normal. Results 09/01/18 14:50 09/01/18 14:50 Cardiac Enzymes 09/01/18 Range/Units 23:39 Troponin I 0.18 H (0.02-0.05) ng/mL - Imaging and Cardiology Imaging: Impressions Myocardial Perfusion Scan Nuc Med 09/02/18 00:00 CONCLUSION: 1. Minimal decreased activity on stress images in the mid anterior wall likely within normal variability versus borderline ischemia. 2. The wall motion is normal. Ejection fraction is 49%. Assessment and Plan - Assessment (1) Elevated troponin Code(s): R74.8 - Abnormal levels of other serum enzymes Status: Acute (2) Hypertensive urgency Code(s): I16.0 - Hypertensive urgency Status: Acute (3) Abnormal EKG Code(s): R94.31 - Abnormal electrocardiogram [ECG] [EKG] Status: Acute - Plan 1) HTN urgency/accelerated HTN Blood pressure mildly better Discussed with his , previously on Bystolic 5mg BID, will go home on that dose 2) Elevated troponin Most likely LVH with HTN urgency Stress test read as possible ischemia vs normal Review of images show no ischemia 3) EF 55-60% by echo 4) Cardiovascularly stable for discharge Will follow up with me in the office
== END 2018-09-03 13:26 | disposition home or self-care (01) ==
LOC: NEPE 14:23 → NEDA 16:39 → N04 17:40
PROVIDERS: ADMIT Hospitalist; ATTEND Hospitalist